=== PATIENT | female | born 1950 | race Caucasian/White ===

== ENCOUNTER 2018-07-19 15:23 | Inpatient (IN) | payer OTHER ==
[~2018-07-19] VITALS: Ht 157.5 cm; Wt 71.4 kg
[2018-07-19 15:29] VITALS: Ht 157.5 cm; Wt 71.4 kg
[2018-07-19 17:23] LABS: BASOPHIL % 1.4 % (0-2); PLATELET COUNT 217 x10^3mcL (130-400); RED CELL DISTRIBUTION WIDTH 14.1 % (11.5-14.5)
[2018-07-19 17:51] LABS: CALCIUM 9.1 mg/dL (8.5-10.1); CHLORIDE SERUM 105 mmol/L (98-107); CREATININE SERUM 0.6 mg/dL (0.6-1.0); GFR1 > 60 mL/min; GLUCOSE SERUM 92 mg/dL (74-106); POTASSIUM SERUM 3.7 mmol/L (3.5-5.1); SODIUM SERUM 142 mmol/L (136-145)
[2018-07-19 17:55] LABS: ALKALINE PHOSPHATASE 95 U/L (46-116); ALT/SGPT 31 U/L (14-59); AST/SGOT 25 U/L (15-37); BILIRUBIN TOTAL 0.39 mg/dL (0.20-1.00); TOTAL PROTEIN, SERUM 7.9 g/dL (6.4-8.2)
[2018-07-19] MEDS ORDERED: OLMESARTAN MEDOXOMIL PO (18:02)
[2018-07-19 19:40] VITALS: BP 151/77
[2018-07-20 05:10] VITALS: BP 150/76
[2018-07-20 06:03] LABS: BASOPHIL % 0.4 % (0-2); PLATELET COUNT 223 x10^3mcL (130-400); RED CELL DISTRIBUTION WIDTH 14.5 % (11.5-14.5)
[2018-07-20 06:23] LABS: CARBON DIOXIDE 27.4 mmol/L (21-32); CHLORIDE SERUM 103 mmol/L (98-107); CREATININE SERUM 0.5 mg/dL (0.6-1.0); GFR1 > 60 mL/min; GLUCOSE SERUM 111 mg/dL (74-106); POTASSIUM SERUM 4.2 mmol/L (3.5-5.1); SODIUM SERUM 136 mmol/L (136-145)
[2018-07-20 08:17] VITALS: BP 149/72
[2018-07-20 10:49] VITALS: BP 148/80
[2018-07-20 13:20] VITALS: BP 129/68
[2018-07-20 14:06] VITALS: BP 129/68
[2018-07-20] MEDS ORDERED: BENICAR20 M1 PO (14:07)
[2018-07-20] MEDS ORDERED: NIFEDIPINE30 MG PO (14:07)
== END 2018-07-20 14:50 | disposition home or self-care (01) | DRG 305 ==
LOC: ED 15:23 → DU 18:11
PROVIDERS: Emergency Medicine; Internal Medicine Pulmonary Disease
DX: I16.9 Hypertensive crisis, unspecified (principal); I49.1 Atrial premature depolarization; G89.29 Other chronic pain; M54.9 Dorsalgia, unspecified; G25.1 Drug-induced tremor; L59.8 Other specified disorders of the skin and subcutaneous tissue related to radiation; R68.2 Dry mouth, unspecified; T46.5X5A Adverse effect of other antihypertensive drugs, initial encounter; Y92.018 Other place in single-family (private) house as the place of occurrence of the external cause; Z68.29 Body mass index [BMI] 29.0-29.9, adult
CPT/HCPCS: J0360; J1650; Q0092